=== PATIENT | female | born 1980 | race Caucasian/White ===

== ENCOUNTER → 2023-11-28 | Outpatient (CLI) | payer BC ==
[~2023-11-28] MED LIST: CEPHALEXIN500 M1 PO; NO HOME MEDICATIONS; PERCOCET 325 MG1 TA2 PO; PHENERGAN 25 TA25 MG PO; PHENERGAN25 MG RC
== END ==
LOC: MC.RAD 10:00
DX: Z12.31 Encounter for screening mammogram for malignant neoplasm of breast (principal); N63.10 Unspecified lump in the right breast, unspecified quadrant